=== PATIENT | female | born 1960 ===

== ENCOUNTER → 2016-11-28 | Outpatient (REF) ==
--- NOTE | 2016-11-28 14:46 | REP ---
PARTIAL LUMBAR SPINE, THREE VIEWS: HISTORY: Degenerative disc disease. There is no acute fracture. The L3-4 through L5-S1 intervertebral discs are decreased in height consistent with disc degeneration. The L3-4 through L5-S1 intervertebral discs are decreased in height consistent with disc degeneration. Osteophytes are present throughout the lumbar spine. There are 11 mm of grade 2 spondylolisthesis of L4 on L5. Impression: Degenerative change as described above. Signed by Hemant Klein MD 11/28/2016 04:21 P
--- NOTE | 2016-11-28 14:54 | REP ---
Clinical: Pain and disability. Technique: Internal rotation, external rotation, and Y view of the right shoulder. Findings: Extensive degenerative changes include subchondral sclerosis and heterogeneity involving the glenoid and humeral head as well as underlying cystic changes, blunting of the glenoid rim, and predominate inferior spurring and osteophyte formation at the glenoid and humeral head/neck. Cortical irregularity and subtle spurring at the acromioclavicular joint is also appreciated. There is no evidence for acute fracture dislocation. No periarticular calcifications. The subacromial space is normal. Impression: Advanced degenerative changes primarily involving the glenohumeral joint. Signed by Amado Ibrahim MD 11/28/2016 02:45 P
== END ==
LOC: M SMT 13:47
PROVIDERS: ATTEND Internal Medicine
DX: Z02.71 Encounter for disability determination (principal)